=== PATIENT | male | born 1960 | race Caucasian/White ===

== ENCOUNTER 2023-10-31 10:56 | Emergency (ER) | payer OTHER, SELFPAY ==
[2023-10-31 11:04] VITALS: BP 137/78; PULSE 68; RESP 20; TEMP 36.8; O2SAT 100
--- NOTE | 2023-10-31 12:10 | ED.EAR ---
HPI - Ear Problem General Chief complaint: Ear Stated complaint: Ears full of wax Time Seen by Provider: 10/31/23 11:23 Source: patient, RN notes reviewed and old records reviewed Mode of arrival: ambulatory Limitations: no limitations History of Present Illness HPI Narrative: 62-year-old male to [facility] for complaint bilateral wax impaction. Patient endorses he was recently seen by ENT and then seen by an car mover this morning and advised that he has bilateral cerumen impaction and needed removal. Patient denies ear pain. Patient endorses recent decrease in hearing Related Data Allergies Allergy/AdvReac Type Severity Reaction Status Date / Time No Known Drug Allergies Allergy Unknown Verified 10/31/23 11:32 Review of Systems Review of Systems: All systems reviewed & are unremarkable except as noted in HPI and below Constitutional: Constitutional: Reports no additional constitutional complaints Eyes: Eyes: Reports no additional eye complaints ENT: Reports as per HPI, Denies otalgia and Reports hearing loss Cardiovascular: Cardiovascular: Reports no additional cardiovascular complaints, Denies chest pain and Denies dyspnea Respiratory: Respiratory: Reports no additional respiratory complaints, Denies cough and Denies dyspnea Musculoskeletal: Musculoskeletal: Reports no additional musculoskeletal complaints Neurologic: Reports system reviewed and no additional complaints, except as documented Psychiatric: Psychiatric: Reports no additional psychiatric complaints PMFSH Comments At the time of my signature, I reviewed and agree with the nursing past medical, surgical, social, and family history. There is no relevant family history pertinent to the patient complaint. Exam Const: General: cooperative, healthy appearing, comfortable, no acute distress, alert and well nourished Nutritional Appearance: well nourished Orientation/consciousness: patient oriented x3 Limitations: no limitations HENMT: Head: normal to inspection Ears: external ears normal and Abnormal EAC present cerumen impaction bilateral Face/Nose/Sinus: Normal external nose present, Normal nares present, normal facial exam, No erythema and No edema Face and sinus: normal facial exam, no erythema and no edema Mouth: Yes Normal oral and palatal mucosa present Eyes: General: appearance normal, both eyes and all related structures Neck: Neck: normal visual inspection, full ROM and no meningeal signs Lymphatic: no lymphadenopathy noted and no lymphedema noted Chest: Chest palpation & inspection: normal inspection of the chest Resp: Effort & Inspection: normal respiratory effort and able to speak in complete sentences Auscultation: clear to auscultation bilaterally Cardio: Jugular venous distension: no JVD Rate: regular rate Rhythm: regular rhythm Back/Spine/Pelvis: Cervical Spine: cervical ROM normal Skin: General skin exam: normal color, no rashes or lesions noted and turgor normal Neuro: General: patient oriented x3, gait normal, moves all extremities and no meningeal signs Speech: normal speech Gait exam (Neuro): Normal gait present Extrem: General: normal to inspection, full ROM and capillary refill normal Psych: Appearance: grossly normal and well kempt Course Course Emergency Course: Some parts of this dictation were generated by voice recognition software and may contain typographical and/or grammatical inaccuracies. Level of Care: Express Care Visit Vital Signs Vital signs: Vital Signs Temperature 36.8 C 10/31/23 11:04 Pulse Rate 68 10/31/23 11:04 Respiratory Rate 20 10/31/23 11:04 Blood Pressure 137/78 10/31/23 11:04 Pulse Oximetry 100 10/31/23 11:04 Oxygen Delivery Room Air 10/31/23 11:04 Temperature 36.8 C 10/31/23 11:04 Pulse Rate 68 10/31/23 11:04 Respiratory Rate 20 10/31/23 11:04 Blood Pressure 137/78 10/31/23 11:04 Pulse Oximetry 100 10/31/23 11:04 Oxygen Delivery
== END 2023-10-31 12:10 | disposition home or self-care (01) ==
PROVIDERS: Emergency Provider Nurse Practitioner Family
DX: H61.23 Impacted cerumen, bilateral (principal); H60.63 Unspecified chronic otitis externa, bilateral
CPT/HCPCS: 69210; 99213; G0463